=== PATIENT | female | born 1990 | race Caucasian/White ===

== ENCOUNTER 2024-05-17 01:46 | Emergency (ER) | payer OTHER ==
[2024-05-17 02:53] LABS: BASOPHILS ABSOLUTE AUTO 0.03 K/uL (0.00-0.10); BASOPHILS PERCENT AUTO 0.5 % (0.1-1.3); EOSINOPHILS ABSOLUTE AUTO 0.09 K/uL (0.00-0.40); EOSINOPHILS PERCENT AUTO 1.5 % (0.0-5.4); HEMATOCRIT 37.8 % (34.3-46.0); HEMOGLOBIN 12.6 g/dL (11.2-15.5); IMMATURE GRAN PERCENT AUTO 0.3 % (0.0-0.7); LYMPHOCYTES ABSOLUTE AUTO 1.53 K/uL (0.8-3.3); LYMPHOCYTES PERCENT AUTO 25.3 % (11.4-47.7); MEAN CORPUSCULAR HEMOGLOBIN 27.2 pg (31.6-35.5); MEAN CORPUSCULAR HGB CONC 33.3 g/dL (31.6-35.5); MEAN CORPUSCULAR VOLUME 81.5 fL (81.4-99.0); MONOCYTES PERCENT AUTO 6.6 % (3.3-12.6); NEUTROPHILS ABSOLUTE AUTO 3.97 K/uL (1.0-7.6); NEUTROPHILS PERCENT AUTO 65.8 % (40.0-78.1); PLATELET COUNT,PLT 272 K/uL (130-375); RED BLOOD CELL COUNT 4.64 M/uL (3.77-5.24)
[2024-05-17 02:54] LABS: IMMATURE GRAN ABSOLUTE AUTO 0.02 K/uL (0.00-0.23)
[2024-05-17 03:08] LABS: APPEARANCE,URINE CLEAR (CLEAR); BILIRUBIN,URINE MODERATE (NEGATIVE); COLOR,URINE YELLOW (YELLOW); GLUCOSE,URINE NEGATIVE (NEGATIVE); KETONES,URINE NEGATIVE (NEGATIVE); LEUKOCYTE ESTERASE,URINE NEGATIVE (NEGATIVE); NITRITE,URINE NEGATIVE (NEGATIVE); OCCULT BLOOD,URINE NEGATIVE (NEGATIVE); PROTEIN,URINE NEGATIVE (NEGATIVE)
[2024-05-17 03:16] LABS: AMORPHOUS SEDIMENT,URINE NOT SEEN; BACTERIA,URINE FEW; EPITHELIAL CELLS,URINE RARE; MUCUS,URINE NOT SEEN; RBC,URINE 0-5 (0-5); WBC,URINE 0-5 (0-5)
[2024-05-17 03:19] LABS: ALANINE AMINOTRANSFERASE,ALT 1070 U/L (12-78); ALBUMIN 3.8 g/dL (3.4-5.0); ALKALINE PHOSPHATASE 179 U/L (46-116); ANION GAP 14.4 mmol/L (5.0-14.0); ASPARTATE AMNIOTRANSFERASE,AST 1221 U/L (15-37); BLOOD UREA NITROGEN,BUN 13 mg/dL (7-18); CALCIUM 8.5 mg/dL (8.5-10.1); CARBON DIOXIDE,CO2 28 mmol/L (21-32); CHLORIDE,CL 101 mmol/L (100-108); CREATININE 0.9 mg/dL (0.6-1.0); EST CRCL DRUG DOSING (CG) 76.06 mL/min; ESTIMATED GFR 86 mL/min (>60); GLUCOSE RANDOM 138 mg/dL (74-106); POTASSIUM,K 3.4 mmol/L (3.6-5.2); PROTEIN TOTAL,TP 7.5 g/dL (6.4-8.2); SODIUM,NA 140 mmol/L (140-148)
[2024-05-17] MEDS: Ondansetron 4 MG Tab.DIS PO ONE (03:52)
[2024-05-17] MEDS ORDERED: Sodium Chloride 0.9% 1,000 ML IV SCH (04:15)
[2024-05-17 05:04] LABS: LYME AB IgM Negative (Negative)
[2024-05-17 05:17] LABS: LYME AB IgG Negative (Negative)
[2024-05-20 19:50] LABS: ANAPLASMA PHAGOCYTOPHILUM PCR Not Detected; BABESIA MICROTI BY PCR Not Detected; BABESIA SPECIES BY PCR Not Detected; EHRLICHIA CHAFFEENSIS BY PCR Not Detected; EHRLICHIA EWINGII/CANIS BY PCR Not Detected; EHRLICHIA MURIS-LIKE BY PCR Not Detected
== END 2024-05-17 05:43 | disposition home or self-care (01) ==
LOC: JP.ED 01:46
DX: K80.20 Calculus of gallbladder without cholecystitis without obstruction (principal); Z91.041 Radiographic dye allergy status
CPT/HCPCS: 36415; 74176; 80053; 81001; 81025; 85025; 86618; 99284; Q0162; 87468; 87469; 87484; 87798